=== PATIENT | male | born 1950 | race Caucasian/White ===

== ENCOUNTER 2019-06-14 07:49 | Inpatient (IN) ==
[2019-06-14] MEDS ORDERED: *HR* Midazolam HCl 2 MG/2 ML VIAL ONE (08:18)
[2019-06-14] MEDS ORDERED: Dexamethasone 4 MG/ML VIAL ONE (08:18)
[2019-06-14] MEDS ORDERED: Lidocaine -MPF 2% 2 ML VIAL ONE (08:18)
[2019-06-14] MEDS ORDERED: Ondansetron 4 MG/2 ML VIAL ONE (08:18)
[2019-06-14] MEDS ORDERED: *HR* FentaNYL (PF) 100 MCG/2 ML VIAL ONE (08:18)
[2019-06-14] MEDS ORDERED: *HR* Propofol 200 MG/20 ML VIAL IVP ONE (08:18)
[2019-06-14] MEDS ORDERED: CeFAZolin Syr 2,000MG/20 ML 2,000 MG/20 ML SYRINGE IVPB ONE (08:21)
[2019-06-14] MEDS ORDERED: Albuterol 2.5 MG/3 ML NEBULIZER IH ONE (08:21)
[2019-06-14] MEDS ORDERED: Ringers Solution, Lactated 1,000 ML IVC SCH (08:30)
[2019-06-14] MEDS ORDERED: Lidocaine -MPF 4% 5 ML AMPUL ONE (08:36)
[2019-06-14] MEDS ORDERED: Acetaminophen IV 1,000 MG/100 ML INFUS..BTL IVPB ONE (08:49)
[2019-06-14] MEDS ORDERED: Ipratropium/Albuterol Neb 3 ML IH PRN (08:49)
[2019-06-14] MEDS ORDERED: Lidocaine -MPF 2% 5 ML VIAL ONE (09:11)
[2019-06-14] MEDS ORDERED: CeFAZolin Syr 3,000MG/30 ML 3,000 MG/30 ML SYRINGE IVPB ONE (09:17)
[2019-06-14] MEDS ORDERED: *HR* Labetalol 20 MG/4 ML SYRINGE IVP PRN (09:17)
[2019-06-14] MEDS ORDERED: Ondansetron 4 MG/2 ML VIAL IVP ONE (09:17)
[2019-06-14] MEDS ORDERED: *HR* OxyCODONE Immed Rel 5 MG TABLET PO PRN (09:17)
[2019-06-14] MEDS ORDERED: *HR* Meperidine 25 MG/ML SYRINGE IVP PRN (09:17)
[2019-06-14] MEDS ORDERED: *HR* Promethazine 25 MG/ML VIAL IVP PRN (09:17)
[2019-06-14] MEDS ORDERED: Ketorolac 30 MG/ML VIAL IVP ONE (09:17)
[2019-06-14] MEDS ORDERED: Propofol 500 MG/50 ML INFUS..BTL ONE (09:32)
[2019-06-14] MEDS ORDERED: *HR* PHENYLEPHRINE 1,000 MCG/10 ML SYRINGE IVP ONE (09:45)
[2019-06-14] MEDS ORDERED: *HR* Phenylephrine 10 MG/ML VIAL ONE (09:50)
[2019-06-14] MEDS ORDERED: Ketorolac 30 MG/ML VIAL ONE (10:37)
[2019-06-14] MEDS ORDERED: Ondansetron 4 MG/2 ML VIAL IVP PRN (11:57)
[2019-06-14] MEDS ORDERED: Morphine Sulfate Oral CONC 10 MG/0.5 ML ORAL.SYG SL PRN (11:57)
[2019-06-14] MEDS: 0.9 % Sodium Chloride 1,000 ML IVC SCH (13:12)
[2019-06-14] MEDS: Acetaminophen IV 1,000 MG/100 ML INFUS..BTL IVPB SCH ×2 (13:14→17:19)
[2019-06-14] MEDS: Ketorolac 30 MG/ML VIAL IVP SCH ×2 (13:15→17:19)
[2019-06-14] MEDS: ceFAZolin 1,000 MG in Water for inj. (sterile) 10 ML IVP SCH (17:19)
[2019-06-14] MEDS: *HR* Heparin 5,000 UNIT/ML VIAL SQ SCH (17:27)
[2019-06-15] MEDS: ceFAZolin 1,000 MG in Water for inj. (sterile) 10 ML IVP SCH ×2 (00:13→08:06)
[2019-06-15] MEDS: Ketorolac 30 MG/ML VIAL IVP SCH ×5 (00:19→23:36)
[2019-06-15] MEDS: Acetaminophen IV 1,000 MG/100 ML INFUS..BTL IVPB SCH ×5 (00:26→23:35)
[2019-06-15] MEDS: 0.9 % Sodium Chloride 1,000 ML IVC SCH (02:33)
[2019-06-15] MEDS: *HR* Heparin 5,000 UNIT/ML VIAL SQ SCH ×2 (06:32→17:20)
[2019-06-15 07:19] LABS: Basophils % 0.1 %; Eosinophils % 0.1 %; Hematocrit 36.8 % (37.5-50.1); Hemoglobin 12.1 g/dL (12.9-16.9); Immature Granulocytes % 0.6 % (0-4); Lymphocytes # 1.8 K/mcL (0.6-4.6); Lymphocytes % 12.3 %; Mean Corpuscular HGB Conc 32.9 g/dL (31.6-35.5); Mean Corpuscular Hemoglobin 28.7 pg (28.0-33.3); Mean Corpuscular Volume 87.4 fL (83.0-100.0); Mean Platelet Volume 9.3 fL (9.4-12.4); Monocytes # 0.9 K/mcL (0.0-1.3); Monocytes % 5.9 %; Neutrophils # 11.8 K/mcL (1.6-8.9); Platelet Count 319 K/mcL (140-400); Red Blood Count 4.21 M/mcL (4.19-5.50); Red Cell Distribution Width 14.6 % (11.5-14.5); White Blood Count 14.5 K/mcL (4.3-11.1)
[2019-06-15 07:35] LABS: BUN/Creatinine Ratio 21 (6-26); Blood Urea Nitrogen 15 mg/dL (8-23); Calcium 8.5 mg/dL (8.6-10.3); Carbon Dioxide 23 mEq/L (23-29); Chloride 103 mEq/L (98-107); Glucose 115 mg/dL (70-105); Osmolality,Calculated 280 (280-300); Potassium 4.2 mEq/L (3.5-5.1); Sodium 134 mEq/L (136-145); eGFR For African Americans > 60 (> 60); eGFR For Non-African Americans > 60 (> 60)
[2019-06-15] MEDS: Pantoprazole 40 MG VIAL IVP SCH (08:07)
[2019-06-16] MEDS: Ketorolac 30 MG/ML VIAL IVP SCH ×2 (05:47→12:40)
[2019-06-16] MEDS: Acetaminophen IV 1,000 MG/100 ML INFUS..BTL IVPB SCH ×2 (05:47→12:40)
[2019-06-16] MEDS: *HR* Heparin 5,000 UNIT/ML VIAL SQ SCH (05:47)
[2019-06-16] MEDS: Pantoprazole 40 MG VIAL IVP SCH (10:12)
[2019-06-16 11:59] VITALS: BP 147/75
== END 2019-06-16 14:14 | disposition home or self-care (01) | DRG 476 ==
LOC: SAMDAY 07:49 → 3ANU 11:53
PROVIDERS: ADMIT Surgery; ATTEND Surgery